=== PATIENT | male | born 2000 | race Two or more races ===

== ENCOUNTER 2020-12-11 13:18 | Emergency (ER) | payer SELFPAY | END 2020-12-11 17:00 | disposition home or self-care (01) | LOC: ER1 13:18 | DX: S61.411A Laceration without foreign body of right hand, initial encounter (principal); S61.011A Laceration without foreign body of right thumb without damage to nail, initial encounter; I10 Essential (primary) hypertension; Z23 Encounter for immunization; W26.8XXA Contact with other sharp object(s), not elsewhere classified, initial encounter; Y92.69 Other specified industrial and construction area as the place of occurrence of the external cause; Y99.0 Civilian activity done for income or pay | CPT/HCPCS: 12001; 73130; 90471; 90715; 99283 ==

== ENCOUNTER 2021-01-19 13:07 | Observation (INO) | payer SELFPAY ==
[~2021-01-19] VITALS: Ht 170.2 cm; Wt 149.7 kg
[2021-01-19 13:42] LABS: HEMOGLOBIN 14.2 gm/dl (14.0-17.5); RED BLOOD COUNT 6.04 M/UL (4.20-5.50); WHITE BLOOD COUNT 15.4 K/UL (4.5-11.0)
[2021-01-19 14:03] LABS: BUN/CREATININE RATIO 13 (0-10)
[2021-01-19] MEDS ORDERED: LISINOPRIL10 MG PO (20:49)
[2021-01-20] MEDS ORDERED: COLACE100 MG PO ×2 (10:06→15:10)
[2021-01-20] MEDS ORDERED: HYDROCODON-ACE1 EAC4 PO ×2 (10:06→15:10)
== END 2021-01-20 11:04 | disposition home or self-care (01) ==
LOC: ER1 13:07 → M/S 16:04 → CDU 16:04 → M/S 20:10
PROVIDERS: Nurse Practitioner; ADMIT Surgery
DX: K35.80 Unspecified acute appendicitis (principal); E66.01 Morbid (severe) obesity due to excess calories; K21.9 Gastro-esophageal reflux disease without esophagitis; I10 Essential (primary) hypertension; Z68.43 Body mass index [BMI] 50.0-59.9, adult; Z20.822 Contact with and (suspected) exposure to COVID-19
CPT/HCPCS: 80053; 83605; 83690; 85025; 96372; 96374; 96375; 99285; G0378; J0500; J1100; J1335; J1885; J2001; J2250; J2270; J2405; J2543; J2704; J3010; J7030; J7120; Q9967; U0002

== ENCOUNTER 2022-03-03 13:26 | Emergency (ER) | payer SELFPAY ==
[~2022-03-03 13:26] MED LIST: COLACE100 MG PO; HYDROCODON-ACE1 EAC4 PO; LISINOPRIL10 MG PO
[2022-03-03] MEDS ORDERED: CYCLOBENZAPRINE5 MG PO (16:53)
[2022-03-03] MEDS ORDERED: NAPROSYN500 MG PO (16:53)
== END 2022-03-03 17:34 | disposition home or self-care (01) ==
LOC: ER1 13:26
DX: S39.012A Strain of muscle, fascia and tendon of lower back, initial encounter (principal); S33.5XXA Sprain of ligaments of lumbar spine, initial encounter; I10 Essential (primary) hypertension; F17.220 Nicotine dependence, chewing tobacco, uncomplicated; X50.9XXA Other and unspecified overexertion or strenuous movements or postures, initial encounter; Y92.89 Other specified places as the place of occurrence of the external cause; Y99.0 Civilian activity done for income or pay
CPT/HCPCS: 99283